=== PATIENT | female | born 1945 | race Caucasian/White ===

== ENCOUNTER → 2016-12-28 | Day surgery (SDC) | payer MEDICARE ==
[~2016-12-28] VITALS: Ht 160 cm; Wt 79.5 kg
[~2016-12-28] MED LIST: ACETAMINOPHEN 1000 MG/100 ML VIAL IV ONE; ALLO100T PO; BUPIVACAINE HCL PF 0.5% 30 ML VIAL ONE; CALC600T13 PO; CALC600T25 PO; CHOL100025 CHEW; CIPR250T52 PO; CIPROFLOXACIN 400 MG PREMIX 200 ML ONE; CLAR10CA3 PO; COMMODE 3-IN-11 MIS; CPMMACHINE; DEXAMETHASONE SOD PHOS 4 MG/ML VIAL ONE; ENOX40P SQ; FAMOTIDINE 20 MG/2 ML VIAL ONE; FEXO15TA PO; FURO1TAB62 PO; GABA100C4 PO; GABA300C5 PO; IPRA0.03; IPRA17I INH; LACTATED RINGER'S 1000 ML INJ 1,000 ML ONE; LIDOCAINE HCL 2% 50 ML VIAL ONE; LISI10TA3 PO; LOVA40TA PO; MIDAZOLAM HCL 2 MG/2 ML VIAL ONE; MIRA3350; MORPHINE SULFATE 4 MG/ML INJ ONE; MULTTAB67 PO; ONDANSETRON HCL 4 MG/2 ML VIAL IV PUSH ONE; OXYC1TAB36 PO; OXYC1TAB63 PO; PERC5TAB12 PO; POTA10CA PO; POTA10TA2 PO; POTA10TA8 PO; PROPOFOL 200 MG/20 ML AMP IV ONE; TURM500C PO; TURM500C3 PO; TYLETAB36 PO; WALKER WHEELS/F1 MIS; oxyCODONE/ACETAMINOPHEN 5 MG/325 MG TAB ONE
[2016-12-28 06:33] VITALS: BP 148/84; PULSE 69; RESP 16; TEMP 98.1; O2SAT 100
--- NOTE | 2016-12-28 08:39 | HHI.PR ---
Immediate Post Op Note Procedure Date: Dec 28, 2016 Pre Op Diagnosis: Post Op Diagnosis: Surgeon: Alexander Torres III Director Of Infection Control(s): lourdes Procedure: Left trapeziectomy and 1st CMC suspension arthroplasty use of image intensifier Complications: none Specimen(s) removed: none Estimated blood loss: min Anesthesia: General, Local Drains: None IVF Patient to: PACU Patient Condition: Good Alexander Torres III, MD Dec 28, 2016 08:39
[2016-12-28 12:25] VITALS: BP 134/76; PULSE 72; RESP 16; TEMP 97.9; O2SAT 98
--- NOTE | 2016-12-28 18:32 | EKG ---
Date Performed: 12/28/2016 Time Performed: 07:13:43 PTAGE: 71 years EKG: Sinus rhythm NORMAL ECG PREVIOUS TRACING : 07/26/2016 09.37 Compared to prior tracing no significant change DOCTOR: Abilio Benedict Interpretating Date/Time 12/28/2016 18:30:51
--- NOTE | 2016-12-29 07:18 | MP ---
cc: ALEXANDER TORRES III, M.D. DATE OF OPERATION 12/28/2016 PREOPERATIVE DIAGNOSIS Left first CMC arthritis. PROCEDURE 1. Left trapeziectomy and first CMC suspension arthroplasty. 2. Use of image intensifier. SURGEON Alexander Torres III, MD PROCEDURE The patient was brought to the operative room, placed supine on the operating table. After the correct side and site of surgery were verified by members of each team in the room multiple times including the patient and myself and after adequate general anesthesia had been achieved, the left upper extremity was prepped and draped in sterile surgical fashion. Mini C-arm was used to verify the site of the intended procedure. The area was infiltrated with a 50/50 mixture of 2% plain lidocaine and 0.5% plain Marcaine into the skin and subcutaneous tissue and into the wrist. The limb was exsanguinated with an Rey wrap and a highly placed, well-padded axillary tourniquet was inflated to 200 mmHg for a total of 62 minutes. A longitudinal incision was made overlying the first CMC joint, carried down through skin, subcutaneous tissue. Blunt dissection was performed. Bipolar electrocautery was used as needed throughout the case. The extensor tendons were retracted in opposite directions. The radial artery was identified and protected the entire time. The first CMC joint was entered with a trap door incision that was distally based on the capsule. The trapezium was then dissected free from the surrounding tissues and resected in its entirety, protecting all the tissue around it. The trapezoid where it was articulating with the scaphoid was gently rongeured down to prevent any arthritic impingement. The ulnar half of the flexor carpi radialis tendon was then harvested keeping it attached distally and this was done through three small 1-cm incisions transversely placed overlying the tendon coursing the forearm. The tendon graft was then advanced into the wound and brought out. Thorough irrigation was performed with saline. A drill hole was then made in the distal-proximal direction through which the flexor carpi radialis limb was advanced and secured. Using 2-0 Ethibond it was then secured to the base of the wound also using interrupted 2-0 Ethibond sutures. The rest of the tendon was then made into a spacer and braided into itself and this nicely adducted the base of the first metacarpal. Thorough irrigation was performed again. The capsule was then repaired and secured to the capsule of the distal pole of the scaphoid and this was done with multiple 2-0 Ethibond sutures. All of the wounds were thoroughly cleansed and dried and irrigated with saline, 2 liters worth all together. The skin edges volarly in the forearm were reapproximated with interrupted and running 4-0 nylon sutures. The lap laparotomy pad was then placed to hold some pressure over the wounds. The axillary tourniquet was then released before the wrist wound was closed and all fingers in the hand including the thumb became immediately soft, pink, warm and brisk, capillary refill less than 2 seconds. There was no evidence of any active bleeding. The radial artery became soft, pink, full and pulsatile. Hemostasis was present. The extensor tendons were then reapproximated using the 2-0 Ethibond sutures and then the skin edges reapproximated using running 4-0 nylon sutures. The hand and arm were thoroughly cleansed and dried. Final x-rays were obtained. Betadine and Adaptic dressings were applied on top of the wounds, followed by a bulky, soft dressing and a well-padded, well molded short-arm thumb spica splint was made in the usual fashion. The patient was awakened from anesthesia and transported to the Post-Anesthesia Care Unit awake and in stable position at the end of the case. Sponge, needle and instrument counts were correct at the end of the case as reported by the nurses in the room. MD KRISS Mitchell III/TUNDE /10:58 AM /6:53 AM
== END | disposition home or self-care (01) ==
LOC: CSDC 05:58
PROVIDERS: ATTEND Orthopaedic Surgery Hand Surgery
DX: M18.12 Unilateral primary osteoarthritis of first carpometacarpal joint, left hand (principal); I10 Essential (primary) hypertension
CPT/HCPCS: 01830; 25447; 26480; 76000; 93005; J0131; J0744; J1100; J2250; J2270; J2405; J3010; J7120

== ENCOUNTER 2017-04-26 14:37 | Inpatient (IN) | payer MEDICARE ==
[~2017-04-26 14:37] MED LIST changes: -ACETAMINOPHEN 1000 MG/100 ML VIAL IV ONE; -BUPIVACAINE HCL PF 0.5% 30 ML VIAL ONE; -CALC600T13 PO; -CALC600T25 PO; -CIPR250T52 PO; -CIPROFLOXACIN 400 MG PREMIX 200 ML ONE; -CLAR10CA3 PO; -COMMODE 3-IN-11 MIS; -CPMMACHINE; -DEXAMETHASONE SOD PHOS 4 MG/ML VIAL ONE; -ENOX40P SQ; -FAMOTIDINE 20 MG/2 ML VIAL ONE; -FEXO15TA PO; -GABA100C4 PO; -GABA300C5 PO; -IPRA17I INH; -LACTATED RINGER'S 1000 ML INJ 1,000 ML ONE; -LIDOCAINE HCL 2% 50 ML VIAL ONE; -MIDAZOLAM HCL 2 MG/2 ML VIAL ONE; -MIRA3350; -MORPHINE SULFATE 4 MG/ML INJ ONE; -ONDANSETRON HCL 4 MG/2 ML VIAL IV PUSH ONE; -OXYC1TAB36 PO; -OXYC1TAB63 PO; -POTA10CA PO; -POTA10TA2 PO; -POTA10TA8 PO; -PROPOFOL 200 MG/20 ML AMP IV ONE; -TURM500C PO; -TURM500C3 PO; -TYLETAB36 PO; -WALKER WHEELS/F1 MIS; -oxyCODONE/ACETAMINOPHEN 5 MG/325 MG TAB ONE
[2017-04-27] MEDS ORDERED: TYLETAB36 PO (09:36)
[2017-04-27] MEDS ORDERED: TURM500C3 PO (09:36)
[2017-04-27] MEDS ORDERED: POTA10CA PO (09:36)
[2017-04-27] MEDS ORDERED: GABA300C5 PO (09:36)
[2017-04-27] MEDS ORDERED: POTA10TA2 PO (09:36)
[2017-04-27] MEDS ORDERED: FEXO15TA PO (09:36)
[2017-04-27] MEDS ORDERED: CALC600T25 PO (09:37)
--- NOTE | 2017-05-15 18:31 | MH ---
cc: PATRICE RUIZ DATE OF ADMISSION 05/16/2017 ADMISSION DIAGNOSIS Malfunctioning right total knee replacement arthroplasty. HISTORY OF THE PRESENT ILLNESS This patient is a 71-year-old female patient known to the undersigned with a history of previous partial knee replacement arthroplasty of the right knee performed in 2002. The patient did well for many years. She had a similar treatment of the left knee several years later. She recently came to revision of her left total knee replacement arthroplasty in July of last year. She is having malfunctioning components of the right knee and now presents for surgical treatment with revision to total knee replacement arthroplasty. PAST MEDICAL HISTORY, SOCIAL HISTORY AND FAMILY HISTORY Some see attached notes. REVIEW OF SYSTEMS See attached notes. PHYSICAL EXAMINATION VITAL SIGNS: 5 feet 3 inches, 212 pounds, BMI of 37.6. Blood pressure 158/82. HEENT: Normocephalic, atraumatic. Pupils equal, round, reactive to light and accommodation. Extraocular motions intact. NECK: Supple. CHEST: Clear. CARDIOVASCULAR: Heart regular rate and rhythm. ABDOMEN: Soft, nontender, normoactive bowel sounds. MUSCULOSKELETAL: Examination right knee well healed incision. Minimal deformity with crepitus with range of motion, pain with range of motion, tenderness along the proximal medial tibia. Flexion limited to 125 degrees. NEUROLOGIC: Examination within normal limits. VASCULAR: Examination is within normal limits. IMPRESSION History of right knee unicompartmental replacement plasty, 2002. PLAN Revision right total knee replacement arthroplasty. CONSENT The risks of surgery including infection, bleeding, loss of motion, continued pain, need for further surgery, neurologic and vascular injury. The patient understands these issues and wishes to press on with surgery as outlined above. MD ALISIA Kent/YOANA /6:15 PM /6:21 PM
[2017-05-16] MEDS ORDERED: METOPROLOL TARTRATE 25 MG TAB PO PRN (09:15)
[2017-05-16] MEDS ORDERED: SODIUM CHLORID 0.9% 500 ML IV PRN (09:15)
[2017-05-16] MEDS ORDERED: POVIDONE IODINE 5% (ANTISEPSIS KIT) 4 APPLICATIONS EACH NARE PRN (09:15)
[2017-05-16] MEDS ORDERED: INSULIN HUMAN REGULAR 1,000 UNITS/10 ML VIAL SQ PRN (09:15)
[2017-05-16] MEDS ORDERED: LACTATED RINGER'S 1000 ML IV PRN (09:15)
[2017-05-16] MEDS ORDERED: POVIDONE IODINE 7.5% SCRUB 118 ML BOTTLE TOPICAL SCH (09:30)
[2017-05-16] MEDS ORDERED: VANCOMYCIN 1000 MG/NS 250 ML (for <70 kg) IV SCH ×2 (09:30)
[2017-05-16] MEDS ORDERED: TRANEXAMIC ACID IV SCH (10:00)
[2017-05-16] MEDS ORDERED: EXPAREL PERI-ARTICULAR INJECTION (TOTAL VOL. 60 ML) P-ARTICULR SCH ×2 (10:00)
[2017-05-16] MEDS ORDERED: SODIUM CHLORIDE 0.9% IV SCH (10:00)
[2017-05-16] MEDS ORDERED: GENTAMICIN SULFATE 80 MG/2 ML VIAL ONE (10:01)
[2017-05-16] MEDS ORDERED: ACETAMINOPHEN 1000 MG/100 ML VIAL IV ONE (10:17)
[2017-05-16] MEDS ORDERED: ONDANSETRON HCL 4 MG/2 ML VIAL ONE (10:17)
[2017-05-16] MEDS ORDERED: FAMOTIDINE 20 MG/2 ML VIAL ONE (10:17)
[2017-05-16] MEDS ORDERED: DEXAMETHASONE SOD PHOS 4 MG/ML VIAL ONE (10:17)
[2017-05-16] MEDS ORDERED: fentaNYL CITRATE 250 MCG/5 ML AMP ONE (10:20)
[2017-05-16] MEDS ORDERED: APREPITANT 40 MG CAP ONE (10:20)
[2017-05-16] MEDS ORDERED: MIDAZOLAM HCL 2 MG/2 ML VIAL ONE (10:20)
[2017-05-16] MEDS ORDERED: ceFAZolin 2 GM PREMIX 50 ML ONE (10:34)
[2017-05-16] MEDS ORDERED: NEOSTIGMINE 3 MG/3 ML SYR IV ONE (12:00)
[2017-05-16] MEDS ORDERED: LACTATED RINGER'S 1000 ML INJ 1,000 ML IV ONE (12:00)
[2017-05-16] MEDS ORDERED: PROPOFOL 200 MG/20 ML AMP IV ONE (12:00)
[2017-05-16] MEDS ORDERED: ONDANSETRON HCL 4 MG/2 ML VIAL IV PUSH ONE (12:00)
[2017-05-16] MEDS ORDERED: SODIUM CHLORIDE 0.9% FLUSH 5 ML FLUSH IVF PRN (13:45)
[2017-05-16] MEDS ORDERED: oxyCODONE/ACETAMINOPHEN 10 MG/325 MG TAB PO PRN (13:45)
[2017-05-16] MEDS ORDERED: MORPHINE SULFATE 8 MG/ML INJ IM PRN (13:45)
[2017-05-16] MEDS ORDERED: NALOXONE HCL 0.4 MG/ML AMP IV PRN (13:45)
[2017-05-16] MEDS ORDERED: MISCELLANEOUS PHARMACY INFORMATION XX ONE (13:45)
[2017-05-16] MEDS ORDERED: TEMAZEPAM 15 MG CAP PO PRN (13:45)
[2017-05-16] MEDS ORDERED: MORPHINE SULFATE 30 MG/30 ML PCA IV SCH (13:45)
[2017-05-16] MEDS ORDERED: MISCELLANEOUS NURSING INFORMATION XX PRN (13:45)
--- NOTE | 2017-05-16 13:52 | PD.OP ---
cc: Geraldo Hill MD Operative Report Date of Surgery: May 16, 2017 Preoperative Diagnosis: Malfunctioning right unicompartmental knee replacement arthroplasty Postoperative Diagnosis: Same Procedure: Revision right total knee replacement arthroplasty Anesthesia: Gen. with abductor canal block Surgeon: Geraldo Hill Director Of Learning(s): MANJINDER Schafer Operation and Findings: EBL: 150 cc INDICATION: This patient presents with long-standing arthritis of the knee. This patient has had extensive conservative care and came to uni-compartment replacement arthroplasty. This patient now has malfunctioning components with loosening and evidence of subsidence. This patient presents for revision knee arthroplasty. NOTE: Luiza Schafer PA-C was present for the entire surgical procedure as my patient care nursing assistant. In my medical opinion her skill and care was necessary for proper management of this patient. TOURNIQUET TIME: C5 minutes COMPANY: [employer] FEMUR: Size 3, right, posterior stabilized, cemented TIBIA: Size 3, fixed bearing, cemented PATELLA: 38 mm POLYETHYLENE INSERT: Posterior stabilized, +10 mm size 3 mm PROCEDURE: This patient was brought the operating room and anesthetized in the supine position. The patient was positioned supine on the table. The tourniquet was placed about the thigh, and the leg was scrubbed with alcohol followed by Hibiclens followed by ChloraPrep and draped sterilely. A timeout was done, and antibiotics were given. After exsanguination the tourniquet was inflated to 300 mmHg. An anterior incision was made and a median parapatellar arthrotomy was performed. The patella was released laterally and subluxed allowing freehand cut of the patella which was then sized. A metal cap was placed over the exposed patellar surface for protection. A test engineering manager hole was placed in the distal femur allowing a 6 valgus cut removing 9 mm from the distal femur. This femoral component was approached. Very carefully with osteotomes we were able to loosen this and the surrounding tissue. We are able to remove this in a retrograde fashion removing very little bone. Anterior posterior and chamfer cuts were made. The posterior stabilize osteotomy was made. The attention was directed to the tibia. Retractors were positioned. The external alignment guide was used allowing the lateral tibia to be used as referencing guide and cut utilizing an oscillating saw taking care to avoid any injury to the surrounding soft tissues. We were able to cut just beneath the tibial component. Some of the previous cement was retained. Loosening of the component was noted. This was sized properly. Trial reduction showed that the insert fit nicely. The patient had range of motion extension 0 flexion 125. A medial release was not necessary. The bony surfaces prepared. On the back table 2 packets of methylmethacrylate were mixed. The components were cemented. Excess cement was removed. The tourniquet let down and hemostasis was controlled. The final plastic insert was inserted. Range of motion was the same as previously noted. A drain was brought through a separate stab incision. The arthrotomy was repaired with interrupted #1 Vicryl suture, subcutaneous tissue 2-0 Vicryl suture and skin with metallic crystal A sterile dressing was applied. Sponge counts, needle counts and instrument counts were all correct. The patient tolerated procedure well and was taken to recovery in satisfactory condition. FINDINGS: There is evidence of loosening of the tibial component. There was moderate synovitis. No complication was noted. The components fit nicely. We did not need to add any additional buildups either distal or posterior because of the revision components. Geraldo Hill MD May 16, 2017 13:51
[2017-05-16] MEDS ORDERED: OXYC1TAB36 PO (13:53)
[2017-05-16] MEDS ORDERED: ENOX40P SQ (13:53)
[2017-05-16] MEDS: PCA - TOTAL MG MORPHINE DELIVERED PER SHIFT SCH ×2 (14:00→21:28)
[2017-05-16] MEDS ORDERED: Post-op Orders (for Pharmacy) MISC XX ONE (14:08)
[2017-05-16] MEDS ORDERED: *morphine SULFATE 8 MG/ML PERIprocedure ONLY ONE (14:25)
[2017-05-16] MEDS ORDERED: TRANEXAMIC ACID INJ 1,000 MG in SODIUM CHLORIDE 0.9% INJ 100 ML IV SCH ×2 (14:30→15:30)
[2017-05-16] MEDS ORDERED: DO NOT ADM ANY ANTICOAGULANT DRUGS PRN (14:45)
[2017-05-16] MEDS: LACTATED RINGER'S 1000 ML INJ 1,000 ML IV SCH (15:00)
[2017-05-16] MEDS ORDERED: *ONDANSETRON 4 MG VIAL PERIprocedural Use ONLY ONE (15:11)
--- NOTE | 2017-05-16 15:15 | RADRPT ---
EXAM DATE/TIME: 05/16/2017 14:50 [facility] COMPARISON: No previous studies available for comparison. INDICATIONS : Post op right knee. MEDICAL HISTORY : None. SURGICAL HISTORY : None. ENCOUNTER: Initial ACUITY: 1 day PAIN SCORE: 5/10 LOCATION: Right Knee. FINDINGS: A right total knee arthroplasty is identified. Skin crystal, surgical drain and subcutaneous emphysem a are present. The tibial and femoral components appear seated. No fractures. CONCLUSION: Postoperative changes right knee arthroplasty. Ever Poe MD on May 16, 2017 at 15:12 Board Certified Radiologist. This report was verified electronically.
[2017-05-16 16:49] VITALS: BP 126/60; PULSE 64; RESP 18; TEMP 96.2; O2SAT 99
[2017-05-16] MEDS ORDERED: PROMETHAZINE HCL 25 MG TAB PO PRN (18:15)
[2017-05-16] MEDS ORDERED: ONDANSETRON HCL 4 MG/2 ML VIAL IV PUSH PRN (18:15)
[2017-05-16] MEDS: MAGNESIUM HYDROXIDE SUSP 30 ML CUP PO SCH (21:00)
[2017-05-16] MEDS: SENNOSIDES 8.6 MG TAB PO SCH (21:00)
[2017-05-16] MEDS: SODIUM CHLORIDE 0.9% FLUSH 5 ML FLUSH IVF SCH (21:00)
[2017-05-16] MEDS: GABAPENTIN 300 MG CAP PO SCH (21:27)
[2017-05-16 21:30] VITALS: BP 116/62; PULSE 70; RESP 16; TEMP 96.7; O2SAT 96
[2017-05-17] VITALS (8 sets, daily range): BP systolic 112–142; BP diastolic 59–73; PULSE 65–84; RESP 16–17; TEMP 96.8–99; O2SAT 95–98
[2017-05-17] MEDS: PCA - TOTAL MG MORPHINE DELIVERED PER SHIFT SCH (05:37)
[2017-05-17] MEDS: LACTATED RINGER'S 1000 ML INJ 1,000 ML IV SCH ×2 (05:38→14:39)
[2017-05-17 07:29] LABS: HEMATOCRIT 30.6 % (35.0-46.0); REVIEW FLAG FINAL
[2017-05-17] MEDS: FUROSEMIDE 20 MG TAB PO SCH (08:13)
[2017-05-17] MEDS: LISINOPRIL 10 MG TAB PO SCH (08:14)
[2017-05-17] MEDS: LORATADINE 10 MG TAB PO SCH (08:14)
[2017-05-17] MEDS: PRAVASTATIN SOD 40 MG TAB PO SCH (08:14)
[2017-05-17] MEDS: ALLOPURINOL 100 MG TAB PO SCH (08:14)
[2017-05-17] MEDS: POTASSIUM CHLORIDE 10 MEQ CONTROLLED RELEASE TAB PO SCH (08:16)
[2017-05-17] MEDS: MAGNESIUM HYDROXIDE SUSP 30 ML CUP PO SCH ×2 (08:18→20:39)
[2017-05-17] MEDS ORDERED: WALKER WHEELS/F1 MIS (08:22)
[2017-05-17] MEDS ORDERED: CPMMACHINE (08:23)
[2017-05-17] MEDS ORDERED: COMMODE 3-IN-11 MIS (08:24)
--- NOTE | 2017-05-17 08:26 | HHI.FF ---
Face to Face Verification Diagnosis: (1) Other mechanical complication of internal right knee prosthesis, initial encounter (2) Osteoarthritis of right knee (3) Right knee pain Physical Therapy Gait training, Safety evaluation, Transfer training, bed to chair Knee: Total knee, Protocol: Right, Full weight bearing Canvas Knee Splint: When in bed & 2 pillows btw thighs Right LE Weight Bearing: WB as tolerated Additional Instructions PT 4 days/wk for 2 weeks. WBAT RLE. TKA protocol. CPM twice daily, 0-60 w goal of 100 flexion. Walker assist as needed. Nursing RN Days per Week: 2 x Week(s): 1 Dressing Changes: Do not change dressing Additional Instructions Hold dressing changes unless saturated. Vitals assessment. I have seen patient Norah Quinteros on 05/17/17. My clinical findings support the need for the requested home health care services because: Limited ability to care for self High risk of falls I certify that my clinical findings support that this patient is homebound because: Post-op weakness Unsteady gait/balance Minnie Bautista May 17, 2017 08:26
[2017-05-17] MEDS: oxyCODONE/ACETAMINOPHEN 10 MG/325 MG TAB PO PRN ×3 (11:34→20:38)
--- NOTE | 2017-05-17 13:03 | PD.ORT.PN ---
Subjective Subjective Remarks Moderate right knee pain. Ice helping. PO pills 'better than [employer]PECTOR'. No new radiating leg pain. Questions about surgery. No new CP or SOB. Objective Vitals Vital Signs Date Time Temp Pulse Resp B/P Pulse Ox O2 Delivery O2 Flow Rate FiO2 05/17/17 11:30 97.0 74 16 142/73 96 05/17/17 08:00 97.5 65 16 112/59 97 05/17/17 07:48 96 21 05/17/17 05:37 18 05/17/17 03:40 97.6 70 16 125/66 96 05/17/17 00:50 96.8 66 16 130/68 97 05/16/17 21:30 96.7 70 16 116/62 96 05/16/17 21:28 18 05/16/17 16:49 96.2 64 18 126/60 99 05/16/17 16:15 98.0 70 17 121/58 98 Room Air 05/16/17 15:45 63 17 130/64 98 Nasal Cannula 1.5 05/16/17 15:30 61 17 134/67 98 Nasal Cannula 3 05/16/17 15:21 16 05/16/17 15:15 55 17 122/61 97 Nasal Cannula 3 05/16/17 15:00 60 17 117/63 97 Nasal Cannula 3 05/16/17 14:45 59 15 117/58 98 Nasal Cannula 3 05/16/17 14:30 61 15 121/60 98 Nasal Cannula 3 05/16/17 14:14 97.6 61 15 129/62 97 Nasal Cannula 3 I/O 05/16/17 05/16/17 05/16/17 05/17/17 05/17/17 05/17/17 07:00 15:00 23:00 07:00 15:00 23:00 Intake Total 1200 ml 1307 ml 921 ml Output Total 950 ml 700 ml 330 ml Balance 250 ml 607 ml 591 ml Intake Oral 480 ml 240 ml IV Total 1200 ml 827 ml 681 ml Output Urine Total 650 ml 520 ml 300 ml Drainage Total 180 ml 30 ml Estimated Blood Loss 300 ml # Bowel Movements 0 0 Result Diagram: 05/17/17 0606 Imaging Last 24 hours Impressions Knee X-Ray 05/16/17 4139 Signed Impressions: Service Date/Time: Tuesday, May 16, 2017 14:50 - CONCLUSION: Postoperative changes right knee arthroplasty. Ever Poe MD Objective Remarks Laying in bed NAD VSS RLE Dressing c/d/i, drain in place lateral, mild swelling and warmth, no redness thigh and calf supple, neg homans +motor at, +sens, +nvi Assessment & Plan Ortho Post Op Day #: 1 Problem List: Assessment and Plan pod#1 s/p R TKA D/C [employer] - change to po pain meds. Lovenox 40mcg daily for dvt prophylaxis. Hold incision dressing changes unless saturated. Ok to d/c drain today - drain site dressing change only. PT - WBAT RLE. TKA protocol. CPM as written. D/C planning, likely [facility] tomorrow. F2F signed Minnie Bautista May 17, 2017 13:03
[2017-05-17] MEDS: ENOXAPARIN SODIUM 40 MG/0.4 ML SYRINGE SQ SCH (13:19)
[2017-05-17] MEDS: POLYETHYLENE GLYCOL 17 GM PKG PO SCH (20:00)
[2017-05-17] MEDS: GABAPENTIN 300 MG CAP PO SCH (20:38)
[2017-05-17] MEDS: SODIUM CHLORIDE 0.9% FLUSH 5 ML FLUSH IVF SCH (20:39)
[2017-05-17] MEDS: SENNOSIDES 8.6 MG TAB PO SCH (20:40)
[2017-05-18 00:05] VITALS: BP 150/69; PULSE 88; RESP 17; TEMP 99; O2SAT 96
[2017-05-18] MEDS: oxyCODONE/ACETAMINOPHEN 10 MG/325 MG TAB PO PRN (01:21)
[2017-05-18] MEDS: LACTATED RINGER'S 1000 ML INJ 1,000 ML IV SCH (03:09)
[2017-05-18 04:05] VITALS: BP 154/69; PULSE 76; RESP 17; TEMP 99; O2SAT 98
[2017-05-18 07:30] VITALS: BP 140/66; PULSE 79; RESP 16; TEMP 97.8; O2SAT 98
--- NOTE | 2017-05-18 08:12 | PD.ORT.PN ---
Subjective Subjective Remarks Continues to have moderate right knee pain but well controlled w PO meds today. Some increased pain after PT yesterday. Better today. Ice very helpful. No new radiating leg pain. No new CP or SOB. Ready for d/c home today. Requests percocet 5 over percocet 10. She states that 'the 5s are a lot less expensive' on her insurance plan. Objective Vitals Vital Signs Date Time Temp Pulse Resp B/P Pulse Ox O2 Delivery O2 Flow Rate FiO2 05/18/17 04:05 99.0 76 17 154/69 98 05/18/17 00:05 99.0 88 17 150/69 96 05/17/17 21:05 95 21 05/17/17 20:30 99.0 84 17 126/63 96 05/17/17 17:35 20 05/17/17 16:30 97.3 69 16 120/64 98 05/17/17 11:30 97.0 74 16 142/73 96 I/O 05/17/17 05/17/17 05/17/17 05/18/17 05/18/17 05/18/17 07:00 15:00 23:00 07:00 15:00 23:00 Intake Total 921 ml 480 ml 240 ml 240 ml Output Total 330 ml 30 ml Balance 591 ml 450 ml 240 ml 240 ml Intake Oral 240 ml 480 ml 240 ml 240 ml IV Total 681 ml Output Urine Total 300 ml Drainage Total 30 ml 30 ml # Voids 3 1 4 # Bowel Movements 0 0 0 0 Result Diagram: 05/17/17 0606 Imaging Last 24 hours Impressions Knee X-Ray 05/16/17 1339 Signed Impressions: Service Date/Time: Tuesday, May 16, 2017 14:50 - CONCLUSION: Postoperative changes right knee arthroplasty. Ever Poe MD Objective Remarks Sitting up in bed NAD VSS RLE Dressing c/d/i, drain removed and site clean, mild swelling and warmth, no redness, no new drainage thigh and calf supple, neg homans +motor at, +sens, +nvi Assessment & Plan Ortho Post Op Day #: 2 Problem List: Assessment and Plan pod#2 s/p R TKA Ortho stable. Ok to d/c home w [facility] after PT today. PO pain meds as needed. She specifically requests Percocet 5/325mg due to cost reasons. Lovenox 40mcg daily for dvt prophylaxis. Hold incision dressing changes unless saturated. PT - WBAT RLE. TKA protocol. CPM as written. F/U in 2 weeks as scheduled. F2F signed Minnie Bautista May 18, 2017 08:12
[2017-05-18] MEDS ORDERED: OXYC1TAB63 PO (08:13)
[2017-05-18] MEDS ORDERED: oxyCODONE/ACETAMINOPHEN 5 MG/325 MG TAB PO PRN (08:15)
--- NOTE | 2017-05-18 08:15 | HHI.DCPOC ---
Discharge Care Plan Diagnosis: (1) Right knee pain (2) Osteoarthritis of right knee Your Health Problems Are: Incision/Drains Swelling Goals to Promote Your Health * To prevent worsening of your condition and complications * To maintain your health at the optimal level Directions to Meet Your Goals Take your medications as prescribed Follow your dietary instruction Follow activity as directed Keep your appointments as scheduled Take your immunizations and boosters as scheduled If your symptoms worsen call your PCP, if no PCP go to Urgent Care Center or Emergency Room Smoking is Dangerous to Your Health. Avoid second hand smoke Call the 24-hour hour crisis hotline for domestic abuse at Minnie Bautista May 18, 2017 08:15
--- NOTE | 2017-05-18 08:16 | HHI.DS ---
Discharge Summary Admission Date May 16, 2017 at 08:25 Discharge Date: May 18, 2017 Admitting Diagnosis see below Diagnosis: Brief History This is a 71 year old female patient CBC/BMP: 05/17/17 0606 Significant Findings Laboratory Tests Test 05/17/17 06:06 Hemoglobin 9.9 GM/DL (11.6-15.3) Hematocrit 30.6 % (35.0-46.0) PE at Discharge Sitting up in bed NAD VSS RLE Dressing c/d/i, drain removed and site clean, mild swelling and warmth, no redness, no new drainage thigh and calf supple, neg homans +motor at, +sens, +nvi Hospital Course D/C [facility] pod#2 -- oxycodone 5mg q4h, lovenox for 15 days. WBAT. Pt Condition on Discharge: Stable Discharge Disposition: Disch w/ Home Health Serv Discharge Instructions Diet Instructions: As Tolerated, No Restrictions, High Fiber Diet Activities You Can Perform: Weight Bearing as Chet Activities to Avoid: Strenuous Activity Additional Activity Instruc.: TKA protocol New Medications: Commode 3-in-1 (Commode 3-in-1) 1 Mis Mis 1 EA .ROUTE DIRECTED #1 Ref 0 EA CPM-Continuous Passive Motion Machine (CPM-Continuous Passive Motion Machine) 1 Ea Device 1 EA .ROUTE DIRECTED #1 Ref 0 EA Walker with Front Wheels (Walker with Front Wheels) 1 Mis Mis 1 EA .ROUTE DIRECTED #1 Ref 0 EA Enoxaparin Inj (Lovenox Inj) 40 Mg/0.4 Ml Syr 40 MG SQ Q24H Prevent Blood Clot #15 INJECTION Oxycodone-Acetaminophen (Oxycodone-Acetaminophen) 5-325 mg Tab 1 TAB PO Q4H PRN PAIN SCALE 1 TO 7 #42 TAB Continued Medications: Acetaminophen-Codeine (Tylenol-Codeine #4) 300-60 mg Tab 1 TAB PO Q4H PRN PAIN Ref 0 TAB Allopurinol (Allopurinol) 100 Mg Tab 100 MG PO DAILY Gout #30 Ref 0 TAB Calcium Carbonate (Calcium) 600 Mg Tab 600 MG PO DAILY Cholecalciferol (Vitamin D3) 1,000 Unit Chew 1000 UNITS CHEW DAILY Nutritional Supplement #1 Ref 0 BOTTLE Fexofenadine (Caryl Allergy) 180 Mg Tab 180 MG PO DAILY Allergy Management #30 Ref 0 TAB Furosemide (Lasix) 20 Mg Tab 20 MG PO DAILY #30 Ref 0 TAB Furosemide (Lasix) 20 Mg Tab 20 MG PO DAILY PRN swelling #60 Ref 0 TAB Gabapentin (Gabapentin) 300 Mg Cap 300 MG PO HS #30 Ref 0 CAP Ipratropium Nasal (Ipratropium Nasal) 0.03% [place] 2 SPRAY NA BID PRN NASAL DRIP Lisinopril (Lisinopril) 10 Mg Tab 10 MG PO DAILY #30 Ref 0 TAB Lovastatin (Lovastatin) 40 Mg Tab 40 MG PO DAILY Cholesterol Management #30 Ref 0 TAB Multiple Vitamin (Multiple Vitamin) 1 Tab 1 TAB PO DAILY Nutritional Supplement Ref 0 TAB Oxycodone-Acetaminophen (Percocet) 5-325 mg Tab 1 TAB PO q6h PRN PAIN Ref 0 TAB Potassium Chloride ER (Potassium Chloride ER) 10 Meq Tab 10 MEQ PO DAILY Electrolyte Replacement #30 Ref 0 TAB Potassium Chloride ER (Potassium Chloride ER) 10 Meq Cap 10 MEQ PO DAILY PRN LEG SWELLING #30 Ref 0 CAP Turmeric (Curcuma Longa) (Turmeric) 500 Mg Cap 500 MG PO BID Minnie Bautista May 18, 2017 08:16
[2017-05-18] MEDS: POLYETHYLENE GLYCOL 17 GM PKG PO SCH (08:25)
[2017-05-18] MEDS: LISINOPRIL 10 MG TAB PO SCH (08:28)
[2017-05-18] MEDS: oxyCODONE/ACETAMINOPHEN 5 MG/325 MG TAB PO PRN ×2 (08:28→13:39)
[2017-05-18] MEDS: ALLOPURINOL 100 MG TAB PO SCH (08:29)
[2017-05-18] MEDS: POTASSIUM CHLORIDE 10 MEQ CONTROLLED RELEASE TAB PO SCH (08:29)
[2017-05-18] MEDS: FUROSEMIDE 20 MG TAB PO SCH (08:30)
[2017-05-18] MEDS: SODIUM CHLORIDE 0.9% FLUSH 5 ML FLUSH IVF SCH (08:30)
[2017-05-18] MEDS: PRAVASTATIN SOD 40 MG TAB PO SCH (08:30)
[2017-05-18] MEDS: LORATADINE 10 MG TAB PO SCH (08:30)
[2017-05-18] MEDS: MAGNESIUM HYDROXIDE SUSP 30 ML CUP PO SCH (08:31)
[2017-05-18 12:00] VITALS: BP 147/70; PULSE 79; RESP 16; TEMP 97.2; O2SAT 97
[2017-05-18] MEDS: ENOXAPARIN SODIUM 40 MG/0.4 ML SYRINGE SQ SCH (12:02)
== END 2017-05-18 14:03 | disposition home or self-care (01) | DRG 468 ==
LOC: HSDI 05-16 08:25 → N06A 05-16 16:29
PROVIDERS: ADMIT Orthopaedic Surgery Orthopaedic Surgery of the Spine; ATTEND Orthopaedic Surgery Orthopaedic Surgery of the Spine
PROC: 0SRC0J9 Replacement of Right Knee Joint with Synthetic Substitute, Cemented, Open Approach (ICD-10-PCS; 2017-05-16)
PROC: 3E0T3BZ Introduction of Anesthetic Agent into Peripheral Nerves and Plexi, Percutaneous Approach (ICD-10-PCS; 2017-05-16)
PROC: 0SPV0JZ Removal of Synthetic Substitute from Right Knee Joint, Tibial Surface, Open Approach (ICD-10-PCS; principal; 2017-05-16 10:52)
DX: T84.032A Mechanical loosening of internal right knee prosthetic joint, initial encounter (principal); N18.3 Chronic kidney disease, stage 3 (moderate); I12.9 Hypertensive chronic kidney disease with stage 1 through stage 4 chronic kidney disease, or unspecified chronic kidney disease; E78.5 Hyperlipidemia, unspecified; I73.9 Peripheral vascular disease, unspecified; K21.0 Gastro-esophageal reflux disease with esophagitis; E66.9 Obesity, unspecified; Z96.652 Presence of left artificial knee joint
CPT/HCPCS: 73560; 85014; 85018; 86850; 86900; 86901; 86920; 94150; C1776; C9290; J0131; J0690; J1100; J1580; J1650; J2250; J2270; J2405; J2710; J3010; J3370; J7050; J7120; J8501; L1830

== ENCOUNTER → 2017-04-27 | Outpatient (CLI) | payer MEDICARE ==
[~2017-04-27] MED LIST changes: +CALC600T13 PO; +CALC600T25 PO; +CLAR10CA3 PO; +ENOX40P SQ; +FEXO15TA PO; +GABA100C4 PO; +GABA300C5 PO; +MIRA3350; +OXYC1TAB36 PO; +POTA10CA PO; +POTA10TA2 PO; +POTA10TA8 PO; +TURM500C PO; +TURM500C3 PO; +TYLETAB36 PO
--- NOTE | 2017-04-28 18:03 | EKG ---
Date Performed: 04/27/2017 Time Performed: 09:20:19 PTAGE: 71 years EKG: Sinus rhythm WITH OCCASIONAL SUPRAVENTRICULAR PREMATURE COMPLEXES INCOMPLETE RIGHT BUNDLE BRANCH BLOCK BORDERLINE ECG PREVIOUS TRACING : 12/28/2016 07.13 Compared to prior tracing no significant change DOCTOR: Ubaldo Talbot Interpretating Date/Time 04/28/2017 18:01:41
== END ==
LOC: CPRE 08:49
PROVIDERS: ATTEND Orthopaedic Surgery Orthopaedic Surgery of the Spine
DX: Z01.810 Encounter for preprocedural cardiovascular examination (principal); Z01.812 Encounter for preprocedural laboratory examination; Z01.818 Encounter for other preprocedural examination; Z79.01 Long term (current) use of anticoagulants; Z96.651 Presence of right artificial knee joint; M25.561 Pain in right knee; R94.31 Abnormal electrocardiogram [ECG] [EKG]
CPT/HCPCS: 93005

== ENCOUNTER 2017-05-25 15:05 | Emergency (ER) | payer MEDICARE ==
[~2017-05-25] VITALS: Ht 157.5 cm; Wt 100.0 kg
[~2017-05-25 15:05] MED LIST changes: -CALC600T13 PO; -CLAR10CA3 PO; +COMMODE 3-IN-11 MIS; +CPMMACHINE; -GABA100C4 PO; -MIRA3350; -OXYC1TAB36 PO; +OXYC1TAB63 PO; -POTA10TA8 PO; -TURM500C PO; +WALKER WHEELS/F1 MIS
[2017-05-25 15:07] VITALS: BP 137/74; PULSE 91; RESP 22; TEMP 98.6; O2SAT 98
--- NOTE | 2017-05-25 16:11 | PD ---
HPI Chief Complaint: Respiratory Symptoms Time Seen by Provider: 16:00 Travel History International Travel<30 days: No Contact w/Intl Traveler<30days: No Traveled to known affect area: No History of Present Illness HPI This is a 71-year-old female who presents for evaluation of dyspnea on exertion. Symptoms started 1 week ago. She reports a history of right total knee replacement on May [address] Easton. She has been on 40 mg of Lovenox daily since then for DVT/PE prevention. She does endorse right leg swelling and pain since the surgery. She denies any chest pain, cough or congestion, nausea or vomiting, fevers or chills, abdominal pain. Denies any history of PE or DVT in the past. Denies any history of CHF, CAD. Denies any black or tarry stools, bright red blood per rectum, hematemesis. Her primary care physician is Dr. Hopkins. No other complaints. PFSH Past Medical History Hx Anticoagulant Therapy: Yes (LOVENOX) Anxiety: No Depression: Yes Cancer: No Cardiovascular Problems: Yes (HTN) High Cholesterol: Yes Diabetes: No Endocrine: No Gastrointestinal Disorders: Yes (CONSTIPATION) Genitourinary: No Hepatitis: No Hiatal Hernia: No Hypertension: Yes Immune Disorder: Yes (fibromylagia) Musculoskeletal: Yes (OA, non displaced L 7 & 8 rib fx 12/10/16) Neurologic: Yes (RLS,numbness in l knee, tingling l hand) Psychiatric: Yes (DEPRESSION) Reproductive: No Respiratory: Yes (SEASONAL ALLERGIES) Migraines: Yes Thyroid Disease: No Past Surgical History Abdominal Surgery: Yes (full abdominoplasty ) AICD: No Body Medical Devices: right knee hardware, left knee Cardiac Surgery: No Ear Surgery: No Endocrine Surgery: No Eye Surgery: No Gynecologic Surgery: Yes (MULT D AND C, ABLATION AND TUBALIGATION ) Joint Replacement: Yes (LEFT KNEE) Neurologic Surgery: No Oral Surgery: No Pacemaker: No Thoracic Surgery: No Other Surgery: Yes (LEFT TOTAL KNEE) Social History Alcohol Use: Yes (RARELY) Tobacco Use: No Substance Use: No Allergies-Medications (Allergen,Severity, Reaction): Coded Allergies: Bisphosphonates (Verified Allergy, Severe, Rash, 05/25/17) Hibiclens (Verified Allergy, Severe, rash-itchy, 05/25/17) Latex (Verified Allergy, Severe, ITCHING,RED RASH, 05/25/17) Penicillin (Verified Allergy, Severe, ITCHING,RASH, 05/25/17) Sulfa (Verified Allergy, Severe, HALLUCINATIONS, 05/25/17) Xarelto (Verified Allergy, Severe, Rash, 05/25/17) rash and itching Erythromycin (Verified Allergy, Mild, GASTRO, 05/25/17) Hydrocodone (Verified Adverse Reaction, Severe, Hallucinations, 05/25/17) Reported Meds & Prescriptions Reported Meds & Active Scripts Active Oxycodone-Acetaminophen 5-325 mg Tab 1 Tab PO Q4H PRN Commode 3-in-1 (Device) 1 Mis Mis 1 Ea .ROUTE DIRECTED CPM-Continuous Passive Motion Machine 1 Ea Device 1 Ea .ROUTE DIRECTED Walker with Front Wheels (Device) 1 Mis Mis 1 Ea .ROUTE DIRECTED Lovenox Inj (Enoxaparin Sodium) 40 Mg/0.4 Ml Syr 40 Mg SQ Q24H Reported Calcium (Calcium Carbonate) 600 Mg Tab 600 Mg PO DAILY Turmeric (Turmeric (Curcuma Longa)) 500 Mg Cap 500 Mg PO BID Potassium Chloride ER (Potassium Chloride) 10 Meq Cap 10 Meq PO DAILY PRN Potassium Chloride ER (Potassium Chloride) 10 Meq Tab 10 Meq PO DAILY Tylenol-Codeine #4 (Acetaminophen-Codeine) 300-60 mg Tab 1 Tab PO Q4H PRN Caryl Allergy (Fexofenadine HCl) 180 Mg Tab 180 Mg PO DAILY Gabapentin 300 Mg Cap 300 Mg PO HS Allopurinol 100 Mg Tab 100 Mg PO DAILY Ipratropium Nasal 0.03% [place] 2 [place] NA BID PRN Lasix (Furosemide) 20 Mg Tab 20 Mg PO DAILY PRN Percocet (Oxycodone-Acetaminophen) 5-325 mg Tab 1 Tab PO Q6H PRN Lovastatin 40 Mg Tab 40 Mg PO DAILY Vitamin D3 (Cholecalciferol) 1,000 Unit Chew 1,000 Units CHEW DAILY Lasix (Furosemide) 20 Mg Tab 20 Mg PO DAILY Multiple Vitamin 1 Tab 1 Tab PO DAILY Lisinopril 10 Mg Tab 10 Mg PO DAILY Review of Systems Except as stated in HPI: all other systems reviewed are Neg Physical Exam Narrative GENERAL: Well-developed well-nourished female in no acute distress SKIN: Warm and dry. Some ecchymosis is noted to the posterior right leg, knee, calf. Surgical dressing in place to the anterior right knee. HEAD: Atraumatic. Normocephalic. EYES: Pupils equal and round. No scleral icterus. No injection or drainage. ENT: No nasal bleeding or discharge. Mucous membranes pink and moist. NECK: Trachea midline. No JVD. CARDIOVASCULAR: Regular rate and rhythm. No murmur appreciated. RESPIRATORY: No accessory muscle use. Clear to auscultation. Breath sounds equal bilaterally. No crackles no wheezing or rhonchi GASTROINTESTINAL: Abdomen soft, non-tender, nondistended. Hepatic and splenic margins not palpable. MUSCULOSKELETAL: No obvious deformities. Skin as noted above. Some tenderness to palpation of the right calf musculature. Negative Homans. NEUROLOGICAL: Awake and alert. No obvious cranial nerve deficits. Motor grossly within normal limits. Normal speech. PSYCHIATRIC: Appropriate mood and affect; insight and judgment normal. Data Data Last Documented VS Vital Signs Date Time Temp Pulse Resp B/P Pulse Ox O2 Delivery O2 Flow Rate FiO2 05/25/17 18:21 78 16 143/64 98 Room Air 05/25/17 15:07 98.6 Orders Complete Blood Count With Diff (05/25/17 16:07) Basic Metabolic Panel (Bmp) (05/25/17 16:07) B-Type Natriuretic Peptide (05/25/17 16:07) Act Partial Throm Time (Ptt) (05/25/17 16:07) Prothrombin Time / Inr (Pt) (05/25/17 16:07) Ckmb (Isoenzyme) Profile (05/25/17 16:07) Troponin I (05/25/17 16:07) Iv Access Insert/Monitor (05/25/17 16:07) Electrocardiogram (05/25/17 16:07) Ecg Monitoring (05/25/17 16:07) Oximetry (05/25/17 16:07) Oxygen Administration (05/25/17 16:07) Chest, Single Ap (05/25/17 16:07) Ct Pulmonary Angiogram (05/25/17 16:07) Us Leg Venous Doppler (05/25/17 16:07) Sodium Chloride 0.9% Flush (Ns Flush) (05/25/17 16:15) Sodium Chlor 0.9% 1000 Ml Inj (Ns 1000 M (05/25/17 18:53) Iodixanol 320 Inj (Rad Ct) (Visipaque 32 (05/25/17 19:17) Labs Laboratory Tests Test 05/25/17 16:10 White Blood Count 6.4 TH/MM3 Red Blood Count 3.54 MIL/MM3 Hemoglobin 10.5 GM/DL Hematocrit 33.0 % Mean Corpuscular Volume 93.3 FL Mean Corpuscular Hemoglobin 29.6 PG Mean Corpuscular Hemoglobin 31.8 % Concent Red Cell Distribution Width 14.5 % Platelet Count 235 TH/MM3 Mean Platelet Volume 7.5 FL Neutrophils (%) (Auto) 79.2 % Lymphocytes (%) (Auto) 10.6 % Monocytes (%) (Auto) 7.7 % Eosinophils (%) (Auto) 2.3 % Basophils (%) (Auto) 0.2 % Neutrophils # (Auto) 5.0 TH/MM3 Lymphocytes # (Auto) 0.7 TH/MM3 Monocytes # (Auto) 0.5 TH/MM3 Eosinophils # (Auto) 0.1 TH/MM3 Basophils # (Auto) 0.0 TH/MM3 CBC Comment DIFF FINAL Differential Comment Prothrombin Time 9.9 SEC Prothromb Time International 0.9 RATIO Ratio Activated Partial 29.7 SEC Thromboplast Time Sodium Level 139 MEQ/L Potassium Level 4.6 MEQ/L Chloride Level 103 MEQ/L Carbon Dioxide Level 31.3 MEQ/L Anion Gap 5 MEQ/L Blood Urea Nitrogen 27 MG/DL Creatinine 1.63 MG/DL Estimat Glomerular Filtration 31 ML/MIN Rate Random Glucose 101 MG/DL Calcium Level 9.3 MG/DL Total Creatine Kinase 90 U/L Troponin I LESS THAN 0.02 NG/ML B-Type Natriuretic Peptide 43 PG/ML [facility] Medical Decision Making Medical Screen Exam Complete: Yes Emergency Medical Condition: Yes Medical Record Reviewed: Yes Interpretation(s) CT pulmonary angiogram CONCLUSION: 1. The study is negative for pulmonary embolism. 2. No infiltrates seen. Minimal right midlung pleural thickening. EKG sinus rhythm Differential Diagnosis PE, physical deep compensation, pneumothorax, acute anemia, CHF Narrative Course 71-year-old female who underwent right knee replacement on February 13 presents with dyspnea on exertion for the past week. Plan is for basic lab work, 12- lead EKG, ECG monitoring with pulse oximetry, ultrasound of the right lower extremity. The patient's lab work and imaging studies have been reviewed. There is no evidence of PE or DVT. Her BNP is normal. Her hemoglobin is low at 10.5. Most recently it was 9.9 on May 17 so it is trending up. She reports that usually it is in the 13 range so she may have had some acute blood loss from the surgery and this could be contributing to her dyspnea on exertion. She has no symptoms of GI bleed. The patient is stable for discharge and outpatient follow-up. Diagnosis Primary Impression: Dyspnea on exertion Additional Instructions: Follow-up closely with primary care physician. Return for any acutely new or worsening symptoms. Med/Other Pt SpecificInfo: No Change to Meds Disposition: 01 DISCHARGE HOME Condition: Stable Juan Rodrigues May 25, 2017 16:11
[2017-05-25] MEDS ORDERED: SODIUM CHLORIDE 0.9% FLUSH 10 ML FLUSH IVF PRN (16:15)
--- NOTE | 2017-05-25 16:27 | RADRPT ---
EXAM DATE/TIME: 05/25/2017 16:04 [facility] COMPARISON: No previous studies available for comparison. INDICATIONS : Short of breath, weak MEDICAL HISTORY : None. SURGICAL HISTORY : just had right knee replacement 05-16-17. ENCOUNTER: Initial ACUITY: 1 day PAIN SCORE: 0/10 LOCATION: Bilateral chest FINDINGS: Portable AP view of the chest demonstrates a normal-sized cardiac silhouette. No effusion, consolidat ion, or pneumothorax is visualized. The bones and soft tissues demonstrate no acute abnormality. CONCLUSION: No acute cardiopulmonary abnormality is identified. Cristiano Betancur MD on May 25, 2017 at 16:24 Board Certified Radiologist. This report was verified electronically.
[2017-05-25 16:30] VITALS: BP 131/60; PULSE 73; RESP 15; O2SAT 97
[2017-05-25 16:38] VITALS: BP 150/67; PULSE 75; RESP 16; O2SAT 99
--- NOTE | 2017-05-25 17:02 | RADRPT ---
EXAM DATE/TIME: 05/25/2017 16:24 [facility] COMPARISON: No previous studies available for comparison. INDICATIONS : Right leg pain and swelling. MEDICAL HISTORY : Hypercholesterolemia. Renal failure, chronic. Hypertension. Restless leg syndrome. Migraines. Anti coagulant therapy, lovenox. Hyperlipidemia. Fibromyalgia. Arthritis. Depression. Rib fractures. Perip heral vascular disease. SURGICAL HISTORY : Tubal ligation. Hysterectomy. Bilateral knee replacement. Abdominoplasty. Multiple dilation and cur ettage. Vein ablation. ENCOUNTER: Initial ACUITY: 2 weeks PAIN SCORE: 5/10 LOCATION: Right leg. TECHNIQUE: Venous ultrasound of the leg was performed from the inguinal ligament to the proximal calf. Real-naseem e, color Doppler and spectral tracing, compression and augmentation techniques were used. FINDINGS: There is normal compressibility of the deep venous system from the inguinal region to the proximal ca lf. No echogenic clot is seen in the lumen of the common femoral, femoral, popliteal, and posterior tibial veins. There is a normal response of the venous system to proximal and distal augmentation an d respiration. CONCLUSION: 1. No sonographic evidence for right lower extremity DVT Maximino Luong MD on May 25, 2017 at 16:58 Board Certified Radiologist. This report was verified electronically.
[2017-05-25 17:16] LABS: BASOPHIL % 0.2 % (0.0-2.0); EOSINOPHIL # 0.1 TH/MM3 (0-0.4); EOSINOPHIL % 2.3 % (0.0-4.0); HEMO FLAGS DIFF FINAL; LYMPH % 10.6 % (9.0-44.0); LYMPHOCYTE # 0.7 TH/MM3 (1.0-4.8); MEAN CELL VOLUME 93.3 FL (80.0-100.0); MEAN CORPUSCULAR HEMOGLOBIN 29.6 PG (27.0-34.0); MEAN CORPUSCULAR HGB CONC 31.8 % (32.0-36.0); MONO % 7.7 % (0.0-8.0); NEUT % 79.2 % (16.0-70.0); PLATELET COUNT 235 TH/MM3 (150-450); RED BLOOD COUNT 3.54 MIL/MM3 (4.00-5.30); RED CELL DISTRIBUTION WIDTH 14.5 % (11.6-17.2); WHITE BLOOD COUNT 6.4 TH/MM3 (4.0-11.0)
[2017-05-25 17:40] LABS: ANION GAP 5 MEQ/L (5-15); BICARBONATE 31.3 MEQ/L (21.0-32.0); BLOOD UREA NITROGEN 27 MG/DL (7-18); CHLORIDE 103 MEQ/L (98-107); GLOMERULAR FILTRATION RATE 31 ML/MIN (>89); POTASSIUM 4.6 MEQ/L (3.5-5.1); SODIUM (NA) 139 MEQ/L (136-145)
[2017-05-25 17:41] LABS: CREATINE KINASE 90 U/L (26-192)
[2017-05-25 18:03] LABS: APTT (PATIENT) 29.7 SEC (24.3-30.1); INTERNATIONAL NORMALIZED RATIO 0.9 RATIO; PROTHROMBIN TIME - PATIENT 9.9 SEC (9.8-11.6)
[2017-05-25 18:21] VITALS: BP 143/64; PULSE 78; RESP 16; O2SAT 98
[2017-05-25] MEDS ORDERED: SODIUM CHLOR 0.9% 1000 ML INJ 1,000 ML IV SCH (18:53)
[2017-05-25] MEDS ORDERED: IODIXANOL 320 MG/ML 10 ML VIAL (for Rad CT) IV ONE (19:17)
--- NOTE | 2017-05-25 19:48 | RADRPT ---
EXAM DATE/TIME: 05/25/2017 19:08 [facility] COMPARISON: No previous studies available for comparison. INDICATIONS : Shortness of breath and lethargy status post knee replacement surgery. IV CONTRAST: 50 cc Visipaque (iodixanol) IV RADIATION DOSE: 16.92 CTDIvol (mGy) MEDICAL HISTORY : Hypertension. SURGICAL HISTORY : Hysterectomy. ENCOUNTER: Initial ACUITY: 1 week PAIN SCALE: 0/10 LOCATION: chest TECHNIQUE: Volumetric scanning of the chest was performed using a pulmonary embolism protocol MIP images were re constructed. Using automated exposure control and adjustment of the mA and/or kV according to patien t size, radiation dose was kept as low as reasonably achievable to obtain optimal diagnostic quality images. DICOM format image data is available electronically for review and comparison. FINDINGS: PULMONARY ARTERIES: No filling defects are seen in the pulmonary arteries through the segmental level. LUNGS: There is no consolidation or pneumothorax . No concerning pulmonary nodule is visualized. PLEURAE: There some mild focal pleural thickening in the posterior right midlung measuring up to 5 mm in thick ness. No evidence of pleural effusion MEDIASTINUM: There is good visualization of the great vessels of the middle mediastinum. No evidence of mediastin al or hilar adenopathy/mass. MUSCULOSKELETAL: Within normal limits for patient age. MISCELLANEOUS: The upper abdomen is partially included in the scan and there are low density lesions in the liver, s pleen, and right kidney, probably representing cysts. CONCLUSION: 1. The study is negative for pulmonary embolism. 2. No infiltrates seen. Minimal right midlung pleural thickening. Robert Begum MD on May 25, 2017 at 19:42 Board Certified Radiologist. This report was verified electronically.
--- NOTE | 2017-05-26 13:37 | EKG ---
Date Performed: 05/25/2017 Time Performed: 15:48:21 PTAGE: 71 years EKG: Sinus rhythm WITH SINUS ARRHYTHMIA INCOMPLETE RIGHT BUNDLE BRANCH BLOCK VOLTAGE CRITERIA FOR LVH ABNORMAL ECG Com pared to prior tracing no significant change PREVIOUS TRACING 04/27/2017 09.20 DOCTOR: Stanford Mahoney Interpretating Date/Time 05/26/2017 13:33:13
== END 2017-05-25 21:14 | disposition home or self-care (01) ==
LOC: NEPC 15:05
DX: R06.09 Other forms of dyspnea (principal); M79.89 Other specified soft tissue disorders
CPT/HCPCS: 71010; 71275; 80048; 82550; 83880; 84484; 85025; 85610; 85730; 93005; 93971; 99285; J7030; Q9967